=== PATIENT | female | born 1995 | race Caucasian/White ===

== ENCOUNTER 2017-02-10 08:17 | Outpatient (CLI) | payer MEDICARE | END 2017-02-10 09:15 | disposition home or self-care (01) | LOC: GENOP → OPSV 08:17 | DX: O26.859 Spotting complicating pregnancy, unspecified trimester (principal); O99.89 Other specified diseases and conditions complicating pregnancy, childbirth and the puerperium; M54.5 Low back pain | CPT/HCPCS: 96372 ==